=== PATIENT | female | born 1995 | race Caucasian/White ===

== ENCOUNTER 2019-02-10 19:49 | Emergency (ER) | payer MEDICAID ==
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
[2019-02-10 23:05] VITALS: BP 116/67; PULSE 89
== END 2019-02-10 21:45 | disposition home or self-care (01) ==
LOC: LL.ED 19:49
DX: R07.9 Chest pain, unspecified (principal); F17.210 Nicotine dependence, cigarettes, uncomplicated; Z88.0 Allergy status to penicillin; Z91.018 Allergy to other foods
CPT/HCPCS: 71250; 81025; 99283-25

== ENCOUNTER 2019-09-12 20:48 | Emergency (ER) | payer SELFPAY ==
[2019-09-12 20:54] VITALS: BP 132/73; PULSE 95
[2019-09-12] MEDS ORDERED: Sodium Chloride 0.9% 10 ML Syringe FLUSH PRN (21:24)
[2019-09-12] MEDS ORDERED: Lactated Ringers 1,000 ML IV ONE (21:24)
--- NOTE | 2019-09-12 21:24 | EDM.PDOC ---
ED HPI GENERAL MEDICAL PROBLEM - General Chief Complaint: Abdominal Pain Stated Complaint: stomach pain Time Seen by Provider: 09/12/19 21:15 Source of Information: Reports: Patient, Old Records ([facility] EMR. No paper hospital chart available.), Significant Other History Limitations: Reports: No Limitations - History of Present Illness INITIAL COMMENTS - FREE TEXT/NARRATIVE: The patient was brought to the emergency room via private automobile for evaluation of a 2 month history of intermittent left lower quadrant abdominal pain with symptoms worsening on 09/08/19. The patient was seen by her regular provider at the [facility] in [place] at that time with UTI and possible nephritis diagnosed at that time with no improvement with recently prescribed Cipro. The patient also apparently had some vaginal moniliasis and was prescribed metronidazole gel, which is stable. Symptoms worsened since about 11 AM this morning, including intermittent 9/10 sharp left lower quadrant abdominal pain with moderate gross hematuria. No definite specific colic type symptoms, however the patient is a somewhat poor historian. She does have a history of chronic constipation with normal bowel movement about 2 days ago. She has not taken any medications for her abdominal pain today, including antipyretics medications, etc.. No recent history of other abdominal pain, heartburn, nausea, diarrhea, melena, gross hematochezia, or any food intolerance , including fatty foods, etc.. The patient also denies any recent fever, cough, wheezing, dyspnea, etc.. Onset: Gradual Onset Date: 09/08/19 Duration: Getting Worse, Intermittent Location: Reports: Abdomen. Denies: Head, Face, Neck, Chest, Back, Pelvis, Upper Extremity, Left, Upper Extremity, Right, Lower Extremity, Left, Lower Extremity, Right, Radiates to Quality: Reports: Same as Previous Episode, Sharp Severity: Severe Improves with: Reports: None Worsens with: Reports: None Context: Reports: Other (As above). 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: Other Medication(s) (As above) Left Lower Abdomen Pain Score (Numeric/FACES): 8 - Related Data Allergies Allergy/AdvReac Type Severity Reaction Status Date / Time mushroom Allergy Swelling Verified 09/12/19 21:23 Penicillins Allergy Anaphylactic Verified 09/12/19 21:23 Shock strawberry Allergy Rash Verified 09/12/19 21:23 Home Meds: Home Meds Cyclobenzaprine [Flexeril] 10 mg PO BEDTIME PRN 01/25/15 [History] Ciprofloxacin HCl [Cipro] 500 mg PO BID 09/12/19 [History] Nitrofurantoin Monohyd/M-Cryst [Macrobid 100 mg Capsule] 100 mg PO BID #20 capsule 09/12/19 [Rx] metroNIDAZOLE [Vandazole 0.75% Gel] 1 applic VAG BEDTIME 09/12/19 [History] Past Medical History HEENT History: Reports: Allergic Rhinitis. Denies: Cataract, Glaucoma, Hard of Hearing, Impaired Vision, Otitis Media, Retinal Detachment Cardiovascular History: Reports: None, Other (See Below). Denies: Afib, Aneurysm, Arrhythmia, Blood Clots/VTE/DVT, CAD, Heart Murmur, High Cholesterol, Hypertension, Syncope Other Cardiovascular History: She does not know her cholesterol status. Respiratory History: Reports: Other (See Below). Denies: Asthma, Bronchitis, Recurrent, COPD, Intubation, Previous, PE, Pneumonia, Recurrent, Pneumothorax, Sleep Apnea, TB Other Respiratory History: Benign granulomatous disease. Gastrointestinal History: Reports: Chronic Constipation. Denies: Celiac Disease , Cholelithiasis, Fecal Incontinence, Gastritis, GERD, GI Bleed, Hepatitis, Inflammatory Bowel Disease, Irritable Bowel Syndrome, Jaundice, PUD Genitourinary History: Reports: None. Denies: Acute Renal Failure, Chronic Renal Insuffiency, Renal Calculus, Retention, Urinary, STD, Urinary Incontinence , UTI, Recurrent LIFE SKILLS COORDINATOR History: Reports: . Denies: Dysfunctional Uterine Bleeding, Endometriosis, Fibroids, Spontaneous : 1 Para: 1 LMP (Approximate): Other (See Below) Other LIFE SKILLS COORDINATOR History: Amenorrhea secondary to Depo-Provera. Full term without complications during pregnancies or deliveries Musculoskeletal History: Reports: Arthritis, Back Pain, Chronic, Fracture, Osteoarthritis, Other (See Below). Denies: Amputation, Gout, Neck Pain, Chronic , RA, SLE Other Musculoskeletal History: Bilateral rib fractures at about age 5 secondary to a fall. Neurological History: Reports: Headaches, Chronic, Migraines. Denies: Cerebral Aneurysms, Concussion, Head Trauma, Seizure, TIA, Vertigo Psychiatric History: Reports: ADD, ADHD, Anxiety, Depression, Other (See Below) . Denies: Abuse, Victim of, Addiction, Alzheimers Disease, Psych Hospitalization(s), PTSD, Suicide Attempt, Suicidal Ideation Other Psychiatric History: No current medical therapy. Endocrine/Metabolic History: Reports: Obesity/BMI 30+. Denies: Diabetes, Gestational, Diabetes, Type I, Diabetes, Type II, Diabetes Mellitus, Type 3c, Hypothyroidism, IDDM Hematologic History: Reports: None. Denies: Anemia, Blood Transfusion(s), Iron Deficiency Immunologic History: Reports: None. Denies: AIDS, HIV, SLE Oncologic (Cancer) History: Reports: None. Denies: Basal Cell Carcinoma, Breast , Cervix, Colon, Hodgkin's Lymphoma, Leukemia, Lymphoma, Malignant Melanoma, Non -Hodgkin's Lymphoma, Ovarian, Squamous Cell Carcinoma, Uterine Dermatologic History: Reports: None. Denies: Eczema, Psoriasis - Infectious Disease History Infectious Disease History: Reports: None. Denies: C-Difficile, Chicken Pox, Measles, Meningitis, Mononucleosis, MRSA, Mumps, Pertussis (Whooping Cough), Rheumatic Fever, Rubella, Scarlet Fever, Shingles, TB, VRE - Past Surgical History Head Surgeries/Procedures: Reports: None HEENT Surgical History: Reports: Adenoidectomy, Oral Surgery, Tonsillectomy, Other (See Below). Denies: Cataract Surgery, Eye Surgery, Laser Surgery, LASIK , Myringotomy w Tube(s), Naso-Sinus Surgery Other HEENT Surgeries/Procedures: Tonsillectomy and adenoidectomy at age 18. Multiple teeth extractions including several tooth extractions on 03/04/17. Cardiovascular Surgical History: Reports: None. Denies: Varicose Respiratory Surgical History: Reports: None. Denies: Thoracentesis GI Surgical History: Reports: None. Denies: Appendectomy, Cholecystectomy, Colonoscopy, EGD, Hernia, Abdominal, Hernia, Inguinal, Hernia Repair/Other Female Surgical History: Reports: None. Denies: Breast Biopsy, Section, D&C, Hysterectomy, Salpingo-Oophorectomy, Tubal Ligation Endocrine Surgical History: Reports: None. Denies: Thyroid Biopsy Neurological Surgical History: Reports: None. Denies: C-Spine, Discectomy, Laminectomy, Lumbar Spine, Sacral Spine, Spinal Fusion, Thoracic Spine, Vertebroplasty Musculoskeletal Surgical History: Reports: None. Denies: Arthroscopic Knee, Carpal Tunnel, Ganglion Cyst, Joint Replacement, Nerve Relocation, ORIF, Shoulder Surgery Oncologic Surgical History: Reports: None Dermatological Surgical History: Reports: None - Past Imaging History Past Imaging History: Reports: CAT Scan (CT scan of the chest on 02/10/19.) Social & Family History - Family History Family Medical History: Noncontributory - Tobacco Use Smoking Status *Q: Current Every Day Smoker Tobacco Use Within Last Twelve Months: Cigarettes Years of Tobacco use: 10 Packs/Tins Daily: 0.5 Packs/Tins Daily Comment: Started smoking had age 13. Used Tobacco, but Quit: No Smoking Cessation Information Provided To Patient: Yes Second Hand Smoke Exposure: Yes Source of Second Hand Smoke Exposure: Boyfriend smokes. Second Hand Smoke Education Provided: Yes - Caffeine Use Caffeine Use: Reports: Energy Drinks (One can per day), Soda (2 sodas per day). Denies: Coffee, Tea - Alcohol Use Alcohol Use History: No Days Per Week of Alcohol Use: 0 Number of Drinks Per Day: 0 Number of Drinks Per Day Comment: No previous DWIs, problems with alcohol abuse , etc. Total Drinks Per Week: 0 Alcohol Use in Last Twelve Months: No - Recreational Drug Use Recreational Drug Use: Yes Drug Use in Last 12 Months: No Recreational Drug Type: Reports: Marijuana/Hashish (One year at age 18.). 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 ED EXAM, GENERAL - Physical Exam Exam: See Below Exam Limited By: No Limitations General Appearance: Alert, WD/WN, No Apparent Distress Eye Exam: Bilateral Eye: EOMI, Normal Inspection (No nystagmus), PERRL Ears: Normal External Exam, Normal Canal, Hearing Grossly Normal, Normal TMs Nose: Normal Inspection, Normal Mucosa, No Blood Throat/Mouth: Normal Teeth (Multiple missing teeth with broken tooth and caries in the third and fourth left lower tooth with no evidence of abscess, drainage, etc.), Normal Gums, Normal Oropharynx, Normal Voice, No Airway Compromise. No: Normal Lips, Dysphagia, Perioral Cyanosis Head: Atraumatic, Normocephalic. No: Facial Swelling, Facial Tenderness, Sinus Tenderness Neck: Normal Inspection, Supple, Non-Tender, Full Range of Motion. No: Lymphadenopathy (L), Lymphadenopathy (R), Thyromegaly Respiratory/Chest: No Respiratory Distress, Lungs Clear, Normal Breath Sounds, No Accessory Muscle Use, Chest Non-Tender. No: Pleural Rub, Retractions Cardiovascular: Normal Peripheral Pulses, Regular Rate, Rhythm, No Edema, No Gallop, No JVD, No Murmur, No Rub. No: Gallop/S3, Gallop/S4, Friction Rub Peripheral Pulses: 2+: Radial (L), Radial (R) GI/Abdominal: Normal Bowel Sounds, No Organomegaly, No Distention, No Abnormal Bruit, No Mass, Pelvis Stable, Tender (Moderate left lower quadrant palpation pain), Other ( obese). No: Guarding, Rigid, Rebound, Hernia, Mass (Female) Exam: Deferred Rectal (Female) Exam: Deferred Back Exam: Normal Inspection, Full Range of Motion. No: CVA Tenderness (L), CVA Tenderness (R), Muscle Spasm Extremities: Normal Inspection, Normal Range of Motion, Non-Tender, No Pedal Edema, Normal Capillary Refill. No: Rina's Sign Neurological: Alert, Oriented, CN II-XII Intact, Normal Cognition, Normal Gait, No Motor/Sensory Deficits Psychiatric: Normal Affect, Normal Mood Skin Exam: Warm, Dry, Intact, Normal Color, No Rash. No: Diaphoretic, Wound/ Incision Lymphatic: No Adenopathy Course - Vital Signs Last Recorded V/S: Last Vital Signs Temp 36.8 C 09/12/19 20:58 Pulse 95 09/12/19 20:58 Resp 20 09/12/19 20:58 BP 132/73 09/12/19 20:58 Pulse Ox 100 09/12/19 20:58 Vital Signs - 24 hr 09/12/19 09/12/19 20:52 20:58 Temperature [ 36.8 C 36.8 C Oral] Pulse, 95 95 Peripheral [ Left Pulse Oximetry] Respiratory 20 20 Rate Blood Pressure 132/73 132/73 [Right Upper Arm] O2 Sat by Pulse 100 100 Oximetry - Orders/Labs/Meds Orders: Active Orders 24 hr Category Date Time Status Peripheral IV Care [RC] . DIRECTED Care 09/12/19 21:25 Active Nothing Per Oral Diet [DIET] Diet 09/12/19 Breakfast Active Abdomen Pelvis w Cont [CT] Stat Exams 09/12/19 21:24 Stop Req Abdomen Pelvis wo Cont [CT] Stat Exams 09/12/19 21:27 Ordered Abdomen Series w Chest 1V [CR] Stat Exams 09/12/19 21:24 Stop Req CULTURE URINE [RM] Stat Lab 09/12/19 21:35 Received Sodium Chloride 0.9% [Saline Flush] Med 09/12/19 21:24 Active 10 ml FLUSH ASDIRECTED PRN Obtain Past Medical Record [OM.PC] Urgent Oth 09/12/19 21:24 Active Peripheral IV Insertion Adult [OM.PC] Stat Oth 09/12/19 21:24 Ordered Resuscitation Status Stat Resus Stat 09/12/19 21:24 Ordered Medication Orders Sodium Chloride (Saline Flush) 10 ml FLUSH ASDIRECTED PRN PRN Reason: Keep Vein Open Last Admin: 09/12/19 22:48 Dose: 10 ml Labs: Laboratory Tests 09/12/19 09/12/19 09/12/19 Range/Units 21:35 21:35 21:35 WBC 10.9 H (4.0-10.2) K/uL RBC 4.69 (3.77-5.09) M/uL Hgb 15.0 (11.7-15.5) g/dL Hct 43.4 (34.0-46.0) % MCV 92.5 (84.0-98.0) fL MCH 32.0 (28.2-33.3) pg MCHC 34.6 (31.7-36.0) g/dL RDW 11.7 (11.2-14.1) % Plt Count 268 (150-350) K/uL Neut % (Auto) 42.6 L (45.0-80.0) % Lymph % (Auto) 46.9 (10.0-50.0) % Barron % (Auto) 8.7 (2.0-14.0) % Eos % (Auto) 1.5 (0.0-5.0) % Baso % (Auto) 0.3 (0.0-2.0) % Neut # (Auto) 4.64 (1.40-7.00) K/uL Lymph # (Auto) 5.10 H (0.50-3.50) K/uL Barron # (Auto) 0.95 (0.00-1.00) K/uL Eos # (Auto) 0.16 (0.00-0.50) K/uL Baso # (Auto) 0.03 (0.00-0.20) K/uL PT (9.5-12.0) SEC INR APTT (24.5-32.8) SEC Sodium (136-145) mmol/L Potassium (3.5-5.1) mmol/L Chloride (98-107) mmol/L Carbon Dioxide (21.0-32.0) mmol/L BUN (7-18) mg/dL Creatinine (0.51-1.17) mg/dL Est Cr Clr Drug Dosing mL/min Estimated GFR (MDRD) mL/min Glucose (74-106) mg/dL Lactic Acid (0.4-2.0) mmol/L Uric Acid (2.6-7.2) mg/dL Calcium (8.5-10.1) mg/dL Magnesium (1.8-2.4) mg/dL Total Bilirubin (0.2-1.0) mg/dL AST (15-37) U/L ALT (12-78) U/L Alkaline Phosphatase (46-116) IU/L Total Protein (6.4-8.2) g/dL Albumin (3.4-5.0) g/dL Amylase 30 (25-115) U/L Lipase (73-393) U/L HCG, Qual (NEGATIVE) Specimen Type Urinvoid Urine Color Yellow Urine Appearance Clear Urine pH 5.5 (5.0-9.0) Ur Specific [place] 1.025 (1.005-1.030) Urine Protein Negative (NEGATIVE) mg/dL Urine Glucose (UA) Negative (NEGATIVE) mg/dL Urine Ketones Negative (NEGATIVE) mg/dL Urine Occult Blood Large H (NEGATIVE) Urine Nitrite Negative (NEGATIVE) Urine Bilirubin Negative (NEGATIVE) Urine Urobilinogen 0.2 (0.2-1.0) E.U./dL Ur Leukocyte Esterase Negative (NEGATIVE) Urine RBC 0-5 /HPF Urine WBC 0-5 /HPF Ur Epithelial Cells Few /LPF Urine Bacteria Few (NONE TO FEW) /HPF 09/12/19 09/12/19 09/12/19 Range/Units 21:35 21:35 21:35 WBC (4.0-10.2) K/uL RBC (3.77-5.09) M/uL Hgb (11.7-15.5) g/dL Hct (34.0-46.0) % MCV (84.0-98.0) fL MCH (28.2-33.3) pg MCHC (31.7-36.0) g/dL RDW (11.2-14.1) % Plt Count (150-350) K/uL Neut % (Auto) (45.0-80.0) % Lymph % (Auto) (10.0-50.0) % Barron % (Auto) (2.0-14.0) % Eos % (Auto) (0.0-5.0) % Baso % (Auto) (0.0-2.0) % Neut # (Auto) (1.40-7.00) K/uL Lymph # (Auto) (0.50-3.50) K/uL Barron # (Auto) (0.00-1.00) K/uL Eos # (Auto) (0.00-0.50) K/uL Baso # (Auto) (0.00-0.20) K/uL PT 10.9 (9.5-12.0) SEC INR 1.1 APTT 26.9 (24.5-32.8) SEC Sodium 141 (136-145) mmol/L Potassium 3.6 (3.5-5.1) mmol/L Chloride 104 (98-107) mmol/L Carbon Dioxide 25.4 (21.0-32.0) mmol/L BUN 11 (7-18) mg/dL Creatinine 0.99 (0.51-1.17) mg/dL Est Cr Clr Drug Dosing 77.92 mL/min Estimated GFR (MDRD) > 60 mL/min Glucose 82 (74-106) mg/dL Lactic Acid 0.6 (0.4-2.0) mmol/L Uric Acid 4.1 (2.6-7.2) mg/dL Calcium 8.9 (8.5-10.1) mg/dL Magnesium 1.8 (1.8-2.4) mg/dL Total Bilirubin 0.4 (0.2-1.0) mg/dL AST 17 (15-37) U/L ALT 28 (12-78) U/L Alkaline Phosphatase 108 (46-116) IU/L Total Protein 6.9 (6.4-8.2) g/dL Albumin 4.0 (3.4-5.0) g/dL Amylase (25-115) U/L Lipase 149 (73-393) U/L HCG, Qual (NEGATIVE) Specimen Type Urine Color Urine Appearance Urine pH (5.0-9.0) Ur Specific [place] (1.005-1.030) Urine Protein (NEGATIVE) mg/dL Urine Glucose (UA) (NEGATIVE) mg/dL Urine Ketones (NEGATIVE) mg/dL Urine Occult Blood (NEGATIVE) Urine Nitrite (NEGATIVE) Urine Bilirubin (NEGATIVE) Urine Urobilinogen (0.2-1.0) E.U./dL Ur Leukocyte Esterase (NEGATIVE) Urine RBC /HPF Urine WBC /HPF Ur Epithelial Cells /LPF Urine Bacteria (NONE TO FEW) /HPF 09/12/19 Range/Units 21:39 WBC (4.0-10.2) K/uL RBC (3.77-5.09) M/uL Hgb (11.7-15.5) g/dL Hct (34.0-46.0) % MCV (84.0-98.0) fL MCH (28.2-33.3) pg MCHC (31.7-36.0) g/dL RDW (11.2-14.1) % Plt Count (150-350) K/uL Neut % (Auto) (45.0-80.0) % Lymph % (Auto) (10.0-50.0) % Barron % (Auto) (2.0-14.0) % Eos % (Auto) (0.0-5.0) % Baso % (Auto) (0.0-2.0) % Neut # (Auto) (1.40-7.00) K/uL Lymph # (Auto) (0.50-3.50) K/uL Barron # (Auto) (0.00-1.00) K/uL Eos # (Auto) (0.00-0.50) K/uL Baso # (Auto) (0.00-0.20) K/uL PT (9.5-12.0) SEC INR APTT (24.5-32.8) SEC Sodium (136-145) mmol/L Potassium (3.5-5.1) mmol/L Chloride (98-107) mmol/L Carbon Dioxide (21.0-32.0) mmol/L BUN (7-18) mg/dL Creatinine (0.51-1.17) mg/dL Est Cr Clr Drug Dosing mL/min Estimated GFR (MDRD) mL/min Glucose (74-106) mg/dL Lactic Acid (0.4-2.0) mmol/L Uric Acid (2.6-7.2) mg/dL Calcium (8.5-10.1) mg/dL Magnesium (1.8-2.4) mg/dL Total Bilirubin (0.2-1.0) mg/dL AST (15-37) U/L ALT (12-78) U/L Alkaline Phosphatase (46-116) IU/L Total Protein (6.4-8.2) g/dL Albumin (3.4-5.0) g/dL Amylase (25-115) U/L Lipase (73-393) U/L HCG, Qual Negative (NEGATIVE) Specimen Type Urine Color Urine Appearance Urine pH (5.0-9.0) Ur Specific [place] (1.005-1.030) Urine Protein (NEGATIVE) mg/dL Urine Glucose (UA) (NEGATIVE) mg/dL Urine Ketones (NEGATIVE) mg/dL Urine Occult Blood (NEGATIVE) Urine Nitrite (NEGATIVE) Urine Bilirubin (NEGATIVE) Urine Urobilinogen (0.2-1.0) E.U./dL Ur Leukocyte Esterase (NEGATIVE) Urine RBC /HPF Urine WBC /HPF Ur Epithelial Cells /LPF Urine Bacteria (NONE TO FEW) /HPF Urine specimen set up for culture and sensitivity Meds: Medications Generic Name Dose Route Start Last Admin Trade Name Freq PRN Reason Stop Dose Admin Sodium Chloride 10 ml 09/12/19 21:24 09/12/19 22:48 Saline Flush FLUSH 10 ml ASDIRECTED PRN Administration Keep Vein Open Discontinued Medications Generic Name Dose Route Start Last Admin Trade Name Verenice PRN Reason Stop Dose Admin Lactated Ringer's 1,000 mls @ 999 mls/hr 09/12/19 21:24 09/12/19 22:47 Ringers, Lactated IV 09/12/19 22:24 Infused .BOLUS ONE Infusion Nitrofurantoin Macrocrystals 100 mg 09/12/19 22:55 09/12/19 23:02 Macrobid PO 09/12/19 22:56 100 mg ONETIME ONE Administration - Radiology Interpretation Free Text/Narrative:: Telephone consultation at 22:45 hours with the radiology department at [facility]. Preliminary verbal report of CT scan of the abdomen and pelvis without contrast does not indicate any evidence of urolithiasis, hydronephrosis, etc. Incidental finding of some mild diverticulosis in the sigmoid colon with no evidence of diverticulitis, etc. CT Results Date: 09/12/19 CT Results Time: 22:45 Departure - Departure Time of Disposition: 23:20 Disposition: Home, Self-Care 01 Condition: Good Clinical Impression: Abdominal pain, Caries, Tobacco abuse counseling, UTI (urinary tract infection) , Vaginal moniliasis, Diverticulosis - Discharge Information *PRESCRIPTION DRUG MONITORING PROGRAM REVIEWED*: Not Applicable *COPY OF PRESCRIPTION DRUG MONITORING REPORT IN PATIENT NELSY: Not Applicable Prescriptions: Nitrofurantoin Monohyd/M-Cryst [Macrobid 100 mg Capsule] 100 mg PO BID #20 capsule Instructions: Steps to Quit Smoking, [id number], Health Risks of Smoking, Urinary Tract Infection, Adult, [id number], Diverticulosis Referrals: PCP,None [Primary Care Provider] - Forms: ED Department Discharge, ED Return to Work/School Form Care Plan Goals: 1. Followup with your regular provider in 10-14 days as directed or reevaluation and recommended repeat CBC, urine test, and urine for culture and sensitivity. Bring these discharge instructions with you to that visit. 2. Tylenol 650 mg by mouth every 4 hours and/or OTC ibuprofen 2-3 tabs by mouth every 6 hours with food as directed./needed. You may stagger these medications for 48-72 hours only, which essentially means that you are receiving a pain medication about every 2 hours. 3. Stop all tobacco use SAÚL as directed/per provided information and consider contacting Quit LIne, etc.. 4. Follow-up with your dentist SAÚL as discussed. 5. Prosper diet including encouragement of oral fluids such as sports drinks, etc. for 24-48 hours as directed. Advance to regular, high fiber diet as tolerated thereafter. 6. Discuss possible further workup for your abdominal pain at time of follow- up depending on your symptoms at that time 7. Work excuse- See Form 8. Immediately after this visit verify that your cellular telephone's voicemail has been activated and is empty. Also verify that your home telephone 's answering machine is operating properly and has space to receive messages. Note that it is sometimes necessary for us to be able to contact you at a later date to discuss your medical care. 9. Please remember that we are ALWAYS here for you and want to answer any questions you may have. Feel free to call the hospital any time and we call you back SAÚL. Sepsis Event Note - Evaluation Sepsis Screening Result: No Definite Risk - Focused Exam Vital Signs: Vital Signs Temp Pulse Resp BP Pulse Ox 09/12/19 20:58 36.8 C 95 20 132/73 100 09/12/19 20:52 36.8 C 95 20 132/73 100 Date Exam was Performed: 09/12/19 Time Exam was Performed: 23:14 - Problem List & Annotations (1) Abdominal pain SNOMED Code(s): 26429083 Code(s): R10.9 - UNSPECIFIED ABDOMINAL PAIN Status: Acute Priority: High Current Visit: Yes Onset Date: ~09/08/19 Annotation/Comment:: Note exacerbation of her chronic left lower quadrant abdominal pain, which has been present for the last [address] scan of the abdomen and pelvis results as above with no direct evidence of urolithiasis, hydronephrosis, etc. History of moderate hematuria prior to arrival, however no significant microhematuria today. Patient has apparently been taking her Cipro only daily earlier today, however she was strongly advised to remain compliant with twice a day dosing regimen. Therapeutic drug levels, etc. were extensively discussed. Initiate additional Macrobid therapy with initial dose given in the emergency room. Previous Cipro therapy will be completed with close follow-up by regular provider as per discharge instructions. No Family history of inflammatory bowel disease, colonic polyps, etc.. Note history of chronic constipation and newly diagnosed incidental finding of diverticulosis today. Further GI and urological workup depending on her clinical course, including possible colonoscopy, etc.. The patient did sign a release of our medical records to her regular providers at [facility] prior to discharge. Work excuse provided. Qualifiers: Abdominal location: left lower quadrant Qualified Code(s): R10.32 - Left lower quadrant pain (2) Diverticulosis SNOMED Code(s): 316449692 Code(s): K57.90 - DVRTCLOS OF INTEST, PART UNSP, W/O PERF OR ABSCESS W/O BLEED Status: Acute Priority: Medium Current Visit: Yes Onset Date: Annotation/Comment:: Incidental finding as above with no evidence of diverticulitis by CT scan. Various therapeutic options were discussed with the patient with no additional oral Flagyl therapy at this time. Possible further GI workup as above. Dietary, etc. information provided at discharge. (3) UTI (urinary tract infection) SNOMED Code(s): 49067050 Code(s): N39.0 - URINARY TRACT INFECTION, SITE NOT SPECIFIED Status: Acute Priority: High Current Visit: Yes Onset Date: 09/08/19 Annotation/ Comment:: As above Qualifiers: Urinary tract infection type: acute cystitis Hematuria presence: with hematuria Qualified Code(s): N30.01 - Acute cystitis with hematuria (4) Caries SNOMED Code(s): 38376157 Code(s): K02.9 - DENTAL CARIES, UNSPECIFIED Status: Chronic Priority: Medium Current Visit: Yes Annotation/Comment:: Follow up with dentist SAÚL with hygiene precautions, etc. discussed. (5) Tobacco abuse counseling SNOMED Code(s): 434931518, 026536279, 100310185 Code(s): Z71.6 - TOBACCO ABUSE COUNSELING Status: Chronic Priority: Medium Current Visit: Yes Annotation/Comment:: Tobacco cessation strongly encouraged both for the patient and her significant other with information provided at discharge. (6) Vaginal moniliasis SNOMED Code(s): 45830832 Code(s): B37.3 - CANDIDIASIS OF VULVA AND VAGINA Status: Acute Priority: Medium Current Visit: Yes Onset Date: 09/08/19 Annotation/Comment:: Complete vaginal Flagyl therapy as above. - Problem List Review Problem List Initiated/Reviewed/Updated: Yes - My Orders Last 24 Hours: My Active Orders 09/12/19 21:24 Abdomen Pelvis w Cont [CT] Stat Abdomen Series w Chest 1V [CR] Stat Sodium Chloride 0.9% [Saline Flush] 10 ml FLUSH ASDIRECTED PRN Obtain Past Medical Record [OM.PC] Urgent Peripheral IV Insertion Adult [OM.PC] Stat Resuscitation Status Stat 09/12/19 21:25 Peripheral IV Care [RC] . DIRECTED 09/12/19 21:27 Abdomen Pelvis wo Cont [CT] Stat 09/12/19 21:35 CULTURE URINE [RM] Stat 09/12/19 Breakfast Nothing Per Oral Diet [DIET] - Assessment/Plan Last 24 Hours: My Active Orders 09/12/19 21:24 Abdomen Pelvis w Cont [CT] Stat Abdomen Series w Chest 1V [CR] Stat Sodium Chloride 0.9% [Saline Flush] 10 ml FLUSH ASDIRECTED PRN Obtain Past Medical Record [OM.PC] Urgent Peripheral IV Insertion Adult [OM.PC] Stat Resuscitation Status Stat 09/12/19 21:25 Peripheral IV Care [RC] . DIRECTED 09/12/19 21:27 Abdomen Pelvis wo Cont [CT] Stat 09/12/19 21:35 CULTURE URINE [RM] Stat 09/12/19 Breakfast Nothing Per Oral Diet [DIET] Assessment:: As above Plan: As above. Extensive precautions were given to the patient and her significant other, who are in agreement with the treatment plan. See Patient Instructions for further treatment and plan.
[2019-09-12 22:07] LABS: CHLORIDE,CL 104 mmol/L (98-107); SODIUM,NA 141 mmol/L (136-145)
[2019-09-12 22:14] LABS: PTT,PARTIAL THROMBOPLSTIN TIME 26.9 SEC (24.5-32.8)
[2019-09-12] MEDS ORDERED: Nitrofurantoin Monohydrate/Macrocrystalline 100 MG Cap PO ONE (22:55)
== END 2019-09-12 23:20 | disposition home or self-care (01) ==
LOC: LL.ED 20:48
DX: K57.30 Diverticulosis of large intestine without perforation or abscess without bleeding (principal); N39.0 Urinary tract infection, site not specified; B37.3 Candidiasis of vulva and vagina; K02.9 Dental caries, unspecified; Z71.6 Tobacco abuse counseling; M19.90 Unspecified osteoarthritis, unspecified site; F90.9 Attention-deficit hyperactivity disorder, unspecified type; E66.9 Obesity, unspecified; Z68.25 Body mass index [BMI] 25.0-25.9, adult; F17.210 Nicotine dependence, cigarettes, uncomplicated; Z88.0 Allergy status to penicillin; Z91.018 Allergy to other foods; Z79.899 Other long term (current) drug therapy
CPT/HCPCS: 36415; 74176; 80053; 81001; 82150; 83605; 83690; 83735; 84550; 84703; 85025; 85610; 85730; 87086; 96360; 99284-25; A9270-GY; J7120

== ENCOUNTER 2020-03-07 18:19 | Emergency (ER) | payer MEDICAID, OTHER ==
[2020-03-07] MEDS ORDERED: Balanced Salt Solution Ophth Irrig 30 ML Bottle EYEBOTH ONE (18:27)
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
== END 2020-03-07 19:05 | disposition home or self-care (01) ==
LOC: LL.ED 18:19
DX: R51 Headache (principal); H53.142 Visual discomfort, left eye; F17.200 Nicotine dependence, unspecified, uncomplicated; Z88.0 Allergy status to penicillin; Z91.018 Allergy to other foods; Z79.899 Other long term (current) drug therapy; V48.5XXA Car driver injured in noncollision transport accident in traffic accident, initial encounter
CPT/HCPCS: 99283; 99284

== ENCOUNTER 2020-03-24 13:26 | Emergency (ER) | payer MEDICAID, OTHER ==
--- NOTE | 2020-03-24 14:02 | EDM.PDOC ---
ED HPI GENERAL MEDICAL PROBLEM - General Chief Complaint: Lower Extremity Injury/Pain Stated Complaint: FOOT PAIN Time Seen by Provider: 03/24/20 13:40 Source of Information: Reports: Patient History Limitations: Reports: No Limitations - History of Present Illness INITIAL COMMENTS - FREE TEXT/NARRATIVE: Pt twisted right foot last night when she stepped wrong Now with pain in mid- foot. No other injury Onset: Gradual Duration: Day(s): Location: Reports: Lower Extremity, Right Context: Reports: Trauma - Related Data Allergies Allergy/AdvReac Type Severity Reaction Status Date / Time mushroom Allergy Swelling Verified 09/12/19 21:23 Penicillins Allergy Anaphylactic Verified 09/12/19 21:23 Shock strawberry Allergy Rash Verified 09/12/19 21:23 Home Meds: Home Meds Cyclobenzaprine [Flexeril] 10 mg PO BEDTIME PRN 01/25/15 [History] Past Medical History - Past Health History Medical/Surgical History: Denies Medical/Surgical History HEENT History: Reports: Allergic Rhinitis, Other (See Below) (Poor dental health). Denies: Cataract, Glaucoma, Hard of Hearing, Impaired Vision, Otitis Media, Retinal Detachment Cardiovascular History: Reports: None, Other (See Below). Denies: Afib, Aneurysm, Arrhythmia, Blood Clots/VTE/DVT, CAD, Heart Murmur, High Cholesterol, Hypertension, Syncope Other Cardiovascular History: She does not know her cholesterol status. Respiratory History: Reports: Other (See Below). Denies: Asthma, Bronchitis, Recurrent, COPD, Intubation, Previous, PE, Pneumonia, Recurrent, Pneumothorax, Sleep Apnea, TB Other Respiratory History: Benign granulomatous disease. Gastrointestinal History: Reports: Chronic Constipation. Denies: Celiac Disease, Cholelithiasis, Fecal Incontinence, Gastritis, GERD, GI Bleed, Hepatitis, Inflammatory Bowel Disease, Irritable Bowel Syndrome, Jaundice, PUD Genitourinary History: Reports: None. 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 Full term without complications during pregnancies or deliveries Musculoskeletal History: Reports: Arthritis, Back Pain, Chronic, Fracture, Osteoarthritis, Other (See Below). Denies: Amputation, Gout, Neck Pain, Chronic, RA, SLE Other Musculoskeletal History: Bilateral rib fractures at about age 5 secondary to a fall. Neurological History: Reports: Headaches, Chronic, Migraines. Denies: Cerebral Aneurysms, Concussion, Head Trauma, Seizure, TIA, Vertigo Psychiatric History: Reports: ADD, ADHD, Anxiety, Depression, Other (See Below). Denies: Abuse, Victim of, Addiction, Alzheimers Disease, Psych Hospitalizat ion(s), PTSD, Suicide Attempt, Suicidal Ideation Other Psychiatric History: No current medical therapy. Endocrine/Metabolic History: Reports: Obesity/BMI 30+. Denies: Diabetes, Gestational, Diabetes, Type I, Diabetes, Type II, Diabetes Mellitus, Type 3c, Hypothyroidism, IDDM Hematologic History: Reports: None. Denies: Anemia, Blood Transfusion(s), Iron Deficiency Immunologic History: Reports: None. Denies: AIDS, HIV, SLE Oncologic (Cancer) History: Reports: None. Denies: Basal Cell Carcinoma, Breast, Cervix, Colon, Hodgkin's Lymphoma, Leukemia, Lymphoma, Malignant Melanoma, Non-Hodgkin's Lymphoma, Ovarian, Squamous Cell Carcinoma, Uterine Dermatologic History: Reports: None. Denies: Eczema, Psoriasis - Infectious Disease History Infectious Disease History: Reports: None. Denies: C-Difficile, Chicken Pox, Measles, Meningitis, Mononucleosis, MRSA, Mumps, Pertussis (Whooping Cough), Rheumatic Fever, Rubella, Scarlet Fever, Shingles, TB, VRE - Past Surgical History Head Surgeries/Procedures: Reports: None HEENT Surgical History: Reports: Adenoidectomy, Oral Surgery, Tonsillectomy, Other (See Below). Denies: Cataract Surgery, Eye Surgery, Laser Surgery, LASIK, Myringotomy w Tube(s), Naso-Sinus Surgery Other HEENT Surgeries/Procedures: Tonsillectomy and adenoidectomy at age 18. Multiple teeth extractions including several tooth extractions on 03/04/17. Cardiovascular Surgical History: Reports: None. Denies: Varicose Respiratory Surgical History: Reports: None. Denies: Thoracentesis GI Surgical History: Reports: None. Denies: Appendectomy, Cholecystectomy, Colonoscopy, EGD, Hernia, Abdominal, Hernia, Inguinal, Hernia Repair/Other Female Surgical History: Reports: None. Denies: Breast Biopsy, Section, D&C, Hysterectomy, Salpingo-Oophorectomy, Tubal Ligation Endocrine Surgical History: Reports: None. Denies: Thyroid Biopsy Neurological Surgical History: Reports: None. Denies: C-Spine, Discectomy, Laminectomy, Lumbar Spine, Sacral Spine, Spinal Fusion, Thoracic Spine, Vertebroplasty Musculoskeletal Surgical History: Reports: None. Denies: Arthroscopic Knee, Carpal Tunnel, Ganglion Cyst, Joint Replacement, Nerve Relocation, ORIF, Shoulder Surgery Oncologic Surgical History: Reports: None Dermatological Surgical History: Reports: None - Past Imaging History Past Imaging History: Reports: CAT Scan (CT scan of the chest on 02/10/19.) Social & Family History - Family History Family Medical History: Noncontributory - Caffeine Use Caffeine Use: Reports: Energy Drinks (One can per day), Soda (2 sodas per day). 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) Review of Systems - Review of Systems Review Of Systems: See Below Musculoskeletal: Reports: Other (Right foot pain) ED EXAM, GENERAL - Physical Exam Exam: See Below Extremities: Other (Right foot with mimimal swelling No ecchymosis neurovascular exam intact) Course - Orders/Labs/Meds Orders: Active Orders 24 hr Category Date Time Status Foot 2V Rt [CR] Stat Exams 03/24/20 13:33 Ordered - Re-Assessments/Exams Free Text/Narrative Re-Assessment/Exam: 03/24/20 14:00 Xray: No obvious pathology Await report Departure - Departure Time of Disposition: 14:00 Disposition: Home, Self-Care 01 Clinical Impression: Right foot sprain Qualifiers: Encounter type: initial encounter Qualified Code(s): S93.601A - Unspecified sprain of right foot, initial encounter - Discharge Information *PRESCRIPTION DRUG MONITORING PROGRAM REVIEWED*: Not Applicable *COPY OF PRESCRIPTION DRUG MONITORING REPORT IN PATIENT NELSY: Not Applicable Instructions: Lisfranc Injury, How to Use Cold Therapy, [id number] Referrals: Oneyda Haji, TRANSMISSION REPAIRER [Primary Care Provider] - Additional Instructions: Ice as needed Baldev wrap as needed Elevate Tylenol or Motrin as needed Follow up in clinic - My Orders Last 24 Hours: My Active Orders 03/24/20 13:33 Foot 2V Rt [CR] Stat - Assessment/Plan Last 24 Hours: My Active Orders 03/24/20 13:33 Foot 2V Rt [CR] Stat
[2020-03-24 14:03] VITALS: BP 119/61; PULSE 115
== END 2020-03-24 14:12 | disposition home or self-care (01) ==
LOC: LL.ED 13:26
DX: S93.601A Unspecified sprain of right foot, initial encounter (principal); E66.9 Obesity, unspecified; Z88.0 Allergy status to penicillin; Z91.018 Allergy to other foods; Z86.73 Personal history of transient ischemic attack (TIA), and cerebral infarction without residual deficits
CPT/HCPCS: 73620-RT; 99281; 99283